=== PATIENT | male | born 1965 | race Caucasian/White ===

== ENCOUNTER 2018-09-29 20:27 | Emergency (ER) | payer SELFPAY ==
[~2018-09-29] VITALS: Ht 182.9 cm; Wt 72.6 kg
[2018-09-29] MEDS ORDERED: IV NORMAL SALINE 1000ML BAG 1,000 ML IV ONE (20:45)
[2018-09-29 21:13] LABS: BASO % 1 % (0-3); EOS # 0.4 x10^3/uL (0.0-0.7); EOS % 8 % (0-3); HEMATOCRIT 38.1 % (39.0-53.0); HEMOGLOBIN 13.2 g/dL (13.0-17.5); LYMPH # 1.2 x10^3/uL (1.0-4.8); LYMPH % 25 % (24-48); MEAN CORPUSCULAR HEMOGLOBIN 31 pg (25-35); MEAN CORPUSCULAR HGB CONC 35 g/dL (31-37); MEAN CORPUSCULAR VOLUME 90 fL (79-100); MONO # 0.4 x10^3/uL (0.0-1.1); MONO % 8 % (0-9); NEUT # 2.6 x10^3uL (1.8-7.7); NEUT % 57 % (31-73); PLATELET COUNT 192 x10^3/uL (140-400); RED BLOOD COUNT 4.21 x10^6/uL (4.30-5.70); WHITE BLOOD COUNT 4.6 x10^3/uL (4.0-11.0)
[2018-09-29] MEDS ORDERED: methylPREDNISolone SOD SUCC PF 125 MG/2 ML VIAL. IV ONE (21:15)
[2018-09-29] MEDS ORDERED: MORPHINE SULFATE 10 MG/ML VIAL. IV ONE (21:15)
[2018-09-29 21:34] LABS: CREATININE 0.9 mg/dL (0.7-1.3); GFR 87.6; POTASSIUM 3.5 mmol/L (3.5-5.1)
[2018-09-29 21:42] LABS: ALBUMIN 3.5 g/dL (3.4-5.0); ALBUMIN/GLOBULIN RATIO 0.8 (1.0-1.7); TOTAL BILIRUBIN 0.9 mg/dL (0.2-1.0); TOTAL PROTEIN 8.1 g/dL (6.4-8.2)
[2018-09-29] MEDS ORDERED: CONTRAST GIVEN. MC PRN (21:45)
[2018-09-29] MEDS ORDERED: IOHEXOL 300 MG/ML 100ML VIAL. IV ONE (21:45)
--- NOTE | 2018-09-29 21:55 | PHYS DOC ---
Past Medical History Past Medical History: No Pertinent History Past Surgical History: No Surgical History Alcohol Use: Occasionally Drug Use: None Adult General Chief Complaint Chief Complaint: SORE THROAT HPI HPI Patient is a 53 year old male with history of smoking, who presents to the ED today complaining of throat pain, patient states his uvula fell off a month and a half ago. He states he followed up with his own doctor who recommended he sees ENT. He states he is not able to see ENT because they wanted $100 from him and he cannot afford it. Patient states he has continued to have increased pain especially when swallowing. He states occasionally since his uvula fell off his saliva comes out through his nose. Denies any fever. Denies any nausea or vomiting. Patient states he has been drinking help him with his pain Review of Systems Review of Systems Constitutional: Denies fever or chills [] Eyes: Denies change in visual acuity, redness, or eye pain [] HENT: Reports his uvula falling off, reports throat pain. Denies nasal congestion Respiratory: Denies cough or shortness of breath [] Cardiovascular: No additional information not addressed in HPI [] GI: Denies abdominal pain, nausea, vomiting, bloody stools or diarrhea [] : Denies dysuria or hematuria [] Musculoskeletal: Denies back pain or joint pain [] Integument: Denies rash or skin lesions [] Neurologic: Denies headache, focal weakness or sensory changes [] All other systems were reviewed and found to be within normal limits, except as documented in this note. Current Medications Current Medications Current Medications Medications (Trade) Dose Ordered Sig/Gonzales Start Time Stop Time Status Last Admin Dose Admin Info (CONTRAST GIVEN -- Rx MONITORING) 1 each PRN DAILY PRN 09/29/18 21:45 10/01/18 21:44 Iohexol (Omnipaque 300 Mg/ml) 70 ml 1X ONCE 09/29/18 21:45 09/29/18 21:46 DC 09/29/18 21:48 70 ML Methylprednisolone Sodium Succinate (SOLU-Medrol 125MG VIAL) 125 mg 1X ONCE 09/29/18 21:15 09/29/18 21:16 DC 09/29/18 21:33 125 MG Morphine Sulfate (Morphine Sulfate) 5 mg 1X ONCE 09/29/18 21:15 09/29/18 21:16 DC 09/29/18 21:34 5 MG Sodium Chloride 1,000 ml @ 1,000 mls/hr 1X ONCE 09/29/18 20:45 09/29/18 21:44 DC 09/29/18 21:32 1,000 MLS/HR Allergies Allergies Allergies Coded Allergies Type Severity Reaction Last Updated Verified No Known Drug Allergies 09/29/18 No Physical Exam Physical Exam Constitutional: Well developed, well nourished, no acute distress, non-toxic appearance. [] HENT: Normocephalic, atraumatic, bilateral external ears normal, oropharynx moist, nose normal. Uvula is missing, no exudate noted on posterior pharynx. Eyes: PERRLA, EOMI, conjunctiva normal, no discharge. [] Neck: Normal range of motion, no tenderness, supple, no stridor. [] Cardiovascular:Heart rate regular rhythm, no murmur [] Lungs & Thorax: Bilateral breath sounds clear to auscultation [] Abdomen: Bowel sounds normal, soft, no tenderness, no masses, no pulsatile masses. [] Skin: Warm, dry, no erythema, no rash. [] Back: No tenderness, no CVA tenderness. [] Extremities: No tenderness, no cyanosis, no clubbing, ROM intact, no edema. [] Neurologic: Alert and oriented X 3, normal motor function, normal sensory function, no focal deficits noted. [] Psychologic: Affect normal, judgement normal, mood normal. [] Current Patient Data Vital Signs Vital Signs Date Time Temp Pulse Resp B/P (MAP) Pulse Ox O2 Delivery O2 Flow Rate FiO2 09/29/18 23:00 81 16 169/88 (115) 97 Room Air 09/29/18 20:35 97.5 97.5 Lab Values Laboratory Tests Test 09/29/18 21:00 09/29/18 23:35 White Blood Count 4.6 x10^3/uL (4.0-11.0) Red Blood Count 4.21 x10^6/uL (4.30-5.70) L Hemoglobin 13.2 g/dL (13.0-17.5) Hematocrit 38.1 % (39.0-53.0) L Mean Corpuscular Volume 90 fL (79-100) Mean Corpuscular Hemoglobin 31 pg (25-35) Mean Corpuscular Hemoglobin Concent 35 g/dL (31-37) Red Cell Distribution Width 14.0 % (11.5-14.5) Platelet Count 192 x10^3/uL (140-400) Neutrophils (%) (Auto) 57 % (31-73) Lymphocytes (%) (Auto) 25 % (24-48) Monocytes (%) (Auto) 8 % (0-9) Eosinophils (%) (Auto) 8 % (0-3) H Basophils (%) (Auto) 1 % (0-3) Neutrophils # (Auto) 2.6 x10^3uL (1.8-7.7) Lymphocytes # (Auto) 1.2 x10^3/uL (1.0-4.8) Monocytes # (Auto) 0.4 x10^3/uL (0.0-1.1) Eosinophils # (Auto) 0.4 x10^3/uL (0.0-0.7) Basophils # (Auto) 0.0 x10^3/uL (0.0-0.2) Sodium Level 139 mmol/L (136-145) Potassium Level 3.5 mmol/L (3.5-5.1) Chloride Level 101 mmol/L (98-107) Carbon Dioxide Level 26 mmol/L (21-32) Anion Gap 12 (6-14) Blood Urea Nitrogen 11 mg/dL (8-26) Creatinine 0.9 mg/dL (0.7-1.3) Estimated GFR (Cockcroft-Gault) 87.6 BUN/Creatinine Ratio 12 (6-20) Glucose Level 97 mg/dL (70-99) Calcium Level 9.0 mg/dL (8.5-10.1) Total Bilirubin 0.9 mg/dL (0.2-1.0) Aspartate Amino Transferase (AST) 41 U/L (15-37) H Alanine Aminotransferase (ALT) 45 U/L (16-63) Alkaline Phosphatase 84 U/L (46-116) Total Protein 8.1 g/dL (6.4-8.2) Albumin 3.5 g/dL (3.4-5.0) Albumin/Globulin Ratio 0.8 (1.0-1.7) L Ethyl Alcohol Level 33 mg/dL (0-10) H Urine Opiates Screen Pos (NEG) Urine Methadone Screen Neg (NEG) Urine Barbiturates Neg (NEG) Urine Phencyclidine Screen Neg (NEG) Urine Amphetamine/Methamphetamine Pos (NEG) Urine Benzodiazepines Screen Neg (NEG) Urine Cocaine Screen Neg (NEG) Urine Cannabinoids Screen Neg (NEG) Urine Ethyl Alcohol Pos (NEG) Laboratory Tests 09/29/18 21:00 Laboratory Tests 09/29/18 21:00 EKG EKG [] Radiology/Procedures Radiology/Procedures []PROCEDURE: CT SOFT TISSUE NECK W/CONTRAST CT scan of the neck with contrast 09/29/2018 CLINICAL HISTORY: Throat pain. TECHNIQUE: After the intravenous administration of 70 cc of Omnipaque 300, contiguous, 3 mm axial sections were obtained through the neck. One or more of the following individualized dose reduction techniques were utilized for this study: 1. Automated exposure control. 2. Adjustment of the mA and/or kV according to patient size. 3. Use of iterative reconstruction technique. Findings: The mucosal structures of the nasopharynx, oropharynx, hypopharynx and larynx are within normal limits. The parotid and submandibular glands are within normal limits. The thyroid gland is within normal limits. Atherosclerotic calcification is seen in the region of the carotid bifurcations. No cervical lymphadenopathy is seen. The paranasal sinuses are essentially clear. Degenerative changes are seen involving the uncovertebral and facet joints throughout the cervical disc spaces. IMPRESSION: No acute abnormality is seen. Electronically signed by: Kobi Zamora MD (09/29/2018 11:09 PM) [facility] DICTATED and SIGNED BY: KOBI ZAMORA MD DATE: 09/29/184 Course & Med Decision Making Course & Med Decision Making Pertinent Labs and Imaging studies reviewed. (See chart for details) This is a 53-year-old male patient presenting to the ED today complaining his uvula fell off a month and a half ago. Currently complaining of throat pain and pain during swallowing. Patient's labs are negative for any acute findings, CT of the neck soft tissue was negative for any acute findings. Patient's alcohol level is 33, he states he has been drinking alcohol to help with his pain. Recommended getting help for alcohol use, also noted for methamphetamine use. Noted for opiates but was given pain medicine in the ED. Provided ENT for follow-up. Medrol Dosepak provided for home use Dragon Disclaimer Dragon Disclaimer This electronic medical record was generated, in whole or in part, using a voice recognition dictation system. Departure Departure Impression: Primary Impression: Sore throat Additional Impressions: Alcohol use Methamphetamine use Disposition: 01 HOME, SELF-CARE Condition: STABLE (discharging right now) Referrals: NO PCP (PCP) JASON ALELN MD follow up in 1 week Patient Instructions: Sore Throat Additional Instructions: You were evaluated in the emergency room, we provided you an ENT specialist, please contact the office in follow-up. Consider getting help for alcohol use. Scripts Methylprednisolone (MEDROL) 4 Mg Tab.ds.pk 1 PKG PO UD, #1 PKG Prov: BENJI MONZON [employer] 09/30/18 Problem Qualifiers BENJI MONZON [employer] Sep 29, 2018 21:55
[2018-09-29 23:00] VITALS: BP 169/88
--- NOTE | 2018-09-29 23:11 | RAD ---
CT scan of the neck with contrast 09/29/2018 CLINICAL HISTORY: Throat pain. TECHNIQUE: After the intravenous administration of 70 cc of Omnipaque 300, contiguous, 3 mm axial sections were obtained through the neck. One or more of the following individualized dose reduction techniques were utilized for this study: 1. Automated exposure control. 2. Adjustment of the mA and/or kV according to patient size. 3. Use of iterative reconstruction technique. Findings: The mucosal structures of the nasopharynx, oropharynx, hypopharynx and larynx are within normal limits. The parotid and submandibular glands are within normal limits. The thyroid gland is within normal limits. Atherosclerotic calcification is seen in the region of the carotid bifurcations. No cervical lymphadenopathy is seen. The paranasal sinuses are essentially clear. Degenerative changes are seen involving the uncovertebral and facet joints throughout the cervical disc spaces. IMPRESSION: No acute abnormality is seen. Electronically signed by: Kobi Douglas MD (09/29/2018 11:09 PM) [facility]
[2018-09-29 23:59] LABS: BARBITURATES NEG (NEG); BENZODIAZEPINES NEG (NEG); CANNABINOIDS NEG (NEG); COCAINE NEG (NEG); METHADONE NEG (NEG); OPIATES POS (NEG); PHENCYCLIDINE NEG (NEG)
[2018-09-30 00:06] LABS: AMPHETAMINE/METHAMPHETAMINE POS (NEG)
[2018-09-30] MEDS ORDERED: METH4TAB2 PO (00:56)
== END 2018-09-30 01:00 | disposition home or self-care (01) ==
LOC: ER 20:27
DX: J02.9 Acute pharyngitis, unspecified (principal); F10.10 Alcohol abuse, uncomplicated; F15.10 Other stimulant abuse, uncomplicated; Y90.1 Blood alcohol level of 20-39 mg/100 ml; Z87.891 Personal history of nicotine dependence
CPT/HCPCS: 36415; 70491; 80053; 80307; 85025; 96374; 96375; 99285; G0480; J2270; J2930; J7030; Q9967